=== PATIENT | male | born 1980 | race Caucasian/White ===

== ENCOUNTER 2018-11-27 18:26 | Emergency (ER) | payer MEDICAID ==
[~2018-11-27] VITALS: Ht 175.3 cm; Wt 79.0 kg
[~2018-11-27 18:26] MED LIST: ONDA4TAB6 PO
[2018-11-27 19:01] VITALS: BP 144/85
[2018-11-27] MEDS ORDERED: CEPH500C5 PO (19:15)
[2018-11-27] MEDS ORDERED: SULF1TAB49 PO (19:15)
== END 2018-11-27 19:45 | disposition home or self-care (01) ==
LOC: ER 18:27
DX: L02.415 Cutaneous abscess of right lower limb (principal); L02.414 Cutaneous abscess of left upper limb; L03.114 Cellulitis of left upper limb; L02.212 Cutaneous abscess of back [any part, except buttock and flank]; L98.499 Non-pressure chronic ulcer of skin of other sites with unspecified severity; J45.909 Unspecified asthma, uncomplicated; F41.9 Anxiety disorder, unspecified; F10.99 Alcohol use, unspecified with unspecified alcohol-induced disorder; Z79.899 Other long term (current) drug therapy; Y90.9 Presence of alcohol in blood, level not specified
CPT/HCPCS: 10060; 99283

== ENCOUNTER 2019-02-12 23:17 | Emergency (ER) | payer MEDICAID, OTHER ==
[~2019-02-12] VITALS: Ht 175.3 cm; Wt 72.7 kg
[2019-02-12 23:21] VITALS: BP 145/82
[2019-02-12] MEDS ORDERED: bacitracin 15gm ointment TP ONE (23:35)
[2019-02-12] MEDS ORDERED: HYDROcodone/acetaminophen 5mg/325mg tablet PO ONE (23:35)
[2019-02-12] MEDS ORDERED: LIDOcaine 1% w/EPI 1:200,000 injection 10mL vial IM ONE (23:35)
[2019-02-13] MEDS ORDERED: SULF1TAB49 PO (00:03)
[2019-02-13] MEDS ORDERED: HYDR-4383 PO (00:03)
== END 2019-02-13 00:19 | disposition home or self-care (01) ==
LOC: ER 23:18
DX: L02.512 Cutaneous abscess of left hand (principal); J45.909 Unspecified asthma, uncomplicated; F41.9 Anxiety disorder, unspecified; F10.99 Alcohol use, unspecified with unspecified alcohol-induced disorder; Z79.899 Other long term (current) drug therapy; Y90.9 Presence of alcohol in blood, level not specified
CPT/HCPCS: 10060; 99283

== ENCOUNTER 2019-06-09 02:16 | Emergency (ER) | payer OTHER ==
[~2019-06-09] VITALS: Ht 175.3 cm; Wt 72.0 kg
[~2019-06-09 02:16] MED LIST changes: +HYDR-4383 PO
[2019-06-09 02:24] VITALS: BP 149/104
[2019-06-09] MEDS ORDERED: MUPI22OI30 TOP (03:28)
== END 2019-06-09 03:35 | disposition home or self-care (01) ==
LOC: ER 02:17
DX: J34.0 Abscess, furuncle and carbuncle of nose (principal); J45.909 Unspecified asthma, uncomplicated; F41.9 Anxiety disorder, unspecified; F15.90 Other stimulant use, unspecified, uncomplicated; F17.200 Nicotine dependence, unspecified, uncomplicated; Z72.89 Other problems related to lifestyle; Z79.899 Other long term (current) drug therapy
CPT/HCPCS: 99283

== ENCOUNTER 2019-12-23 06:58 | Emergency (ER) | payer MEDICAID ==
[~2019-12-23] VITALS: Ht 175.3 cm; Wt 67.6 kg
[2019-12-23 07:01] VITALS: BP 137/96
--- NOTE | 2019-12-23 07:14 | NUR ---
PATIENT IS HERE FOR STAPLE REMOVAL. PATIENT HAS HEALING LAC ON TOP OF HEAD WITH 6 SHANEL NOTED. NO REDNESS, SWELLING OR DRAINAGE NOTED. STAPLE REMOVAL SET UP AT THE BEDSIDE.
== END 2019-12-23 08:16 | disposition home or self-care (01) ==
LOC: ER 06:58
DX: S01.01XD Laceration without foreign body of scalp, subsequent encounter (principal); J45.909 Unspecified asthma, uncomplicated; F41.9 Anxiety disorder, unspecified; F15.90 Other stimulant use, unspecified, uncomplicated; Z72.89 Other problems related to lifestyle; Z79.899 Other long term (current) drug therapy; W22.8XXD Striking against or struck by other objects, subsequent encounter
CPT/HCPCS: 99281

== ENCOUNTER 2020-01-29 15:51 | Emergency (ER) | payer MEDICAID ==
[~2020-01-29] VITALS: Ht 175.3 cm; Wt 72.7 kg
[2020-01-29 16:19] VITALS: BP 132/87
[2020-01-29] MEDS ORDERED: PRED20TA PO (16:58)
[2020-01-29] MEDS ORDERED: ALBU8HFA PO (16:58)
== END 2020-01-29 17:28 | disposition home or self-care (01) ==
LOC: ER 15:52
DX: J45.901 Unspecified asthma with (acute) exacerbation (principal); Z76.0 Encounter for issue of repeat prescription; F41.9 Anxiety disorder, unspecified; F17.210 Nicotine dependence, cigarettes, uncomplicated; F15.90 Other stimulant use, unspecified, uncomplicated; Z72.89 Other problems related to lifestyle; Z79.899 Other long term (current) drug therapy
CPT/HCPCS: 99281

== ENCOUNTER 2021-03-20 15:22 | Emergency (ER) | payer MEDICAID ==
[~2021-03-20] VITALS: Ht 175.3 cm; Wt 77.0 kg
[2021-03-20 15:41] VITALS: BP 126/77
[2021-03-20] MEDS ORDERED: CefTRIAXone 1000mg IM Kit (w/lidocaine diluent) IM STA (17:21)
[2021-03-20] MEDS ORDERED: DOXYCYCLINE 100MG CAPSULE PO ONE (17:25)
[2021-03-20] MEDS ORDERED: DOXY100C76 PO (18:01)
== END 2021-03-20 18:05 | disposition home or self-care (01) ==
LOC: ER 15:23
DX: N45.2 Orchitis (principal); J45.909 Unspecified asthma, uncomplicated; F41.9 Anxiety disorder, unspecified; F15.10 Other stimulant abuse, uncomplicated; Z79.899 Other long term (current) drug therapy
CPT/HCPCS: 36415; 76870; 87491; 87591; 93976; 96372; 99284; J0696

== ENCOUNTER 2021-05-18 15:16 | Emergency (ER) | payer MEDICAID ==
[~2021-05-18] VITALS: Ht 175.3 cm; Wt 77.3 kg
[2021-05-18] MEDS ORDERED: AMOX-422 PO (16:38)
[2021-05-18] MEDS ORDERED: amox tr/potassium clavulanate 875/125mg TAB PO ONE (16:40)
== END 2021-05-18 16:50 | disposition home or self-care (01) ==
LOC: ER 15:17
DX: K05.20 Aggressive periodontitis, unspecified (principal); K08.89 Other specified disorders of teeth and supporting structures; F41.9 Anxiety disorder, unspecified; J45.909 Unspecified asthma, uncomplicated; F15.90 Other stimulant use, unspecified, uncomplicated; Z72.89 Other problems related to lifestyle; Z79.2 Long term (current) use of antibiotics; Z79.899 Other long term (current) drug therapy
CPT/HCPCS: 99283

== ENCOUNTER 2022-08-17 12:59 | Outpatient (CLI) | payer MEDICAID | END 2022-08-17 23:59 | disposition home or self-care (01) | LOC: RAD 12:59 | PROVIDERS: ATTEND General Practice | DX: F11.20 Opioid dependence, uncomplicated (principal) | CPT/HCPCS: 93005 ==

== ENCOUNTER 2022-10-08 20:25 | Emergency (ER) | payer MEDICAID ==
[~2022-10-08] VITALS: Ht 175.3 cm; Wt 176.0 kg
[2022-10-08 20:37] VITALS: BP 145/103
[2022-10-08] MEDS ORDERED: AMOX-580 PO (21:20)
[2022-10-08] MEDS ORDERED: amox tr/potassium clavulanate 875/125mg TAB PO ONE (21:20)
[2022-10-08] MEDS ORDERED: HYDROcodone/acetaminophen 5mg/325mg tablet PO ONE (21:20)
== END 2022-10-08 21:22 | disposition home or self-care (01) ==
LOC: ER 20:26
DX: K08.89 Other specified disorders of teeth and supporting structures (principal); J45.909 Unspecified asthma, uncomplicated; F15.90 Other stimulant use, unspecified, uncomplicated; Z72.89 Other problems related to lifestyle; Z79.899 Other long term (current) drug therapy; Z79.2 Long term (current) use of antibiotics
CPT/HCPCS: 99283

== ENCOUNTER 2022-10-16 16:55 | Emergency (ER) | payer MEDICAID ==
[~2022-10-16] VITALS: Ht 175.3 cm; Wt 79.4 kg
[~2022-10-16 16:55] MED LIST changes: +AMOX-580 PO
[2022-10-16 17:27] VITALS: BP 119/81
== END 2022-10-16 21:54 | disposition left against medical advice (07) ==
LOC: ER 16:56
DX: K08.89 Other specified disorders of teeth and supporting structures (principal); Z53.21 Procedure and treatment not carried out due to patient leaving prior to being seen by health care provider
CPT/HCPCS: 99281

== ENCOUNTER 2022-10-21 20:22 | Emergency (ER) | payer MEDICAID ==
[~2022-10-21] VITALS: Ht 175.3 cm; Wt 79.5 kg
[~2022-10-21 20:22] MED LIST changes: -AMOX-580 PO
[2022-10-21 20:43] VITALS: BP 146/92
[2022-10-21] MEDS ORDERED: CLIN300C54 PO (22:53)
[2022-10-21] MEDS ORDERED: IBUP-1986 PO (22:53)
[2022-10-21] MEDS ORDERED: ketorolac trometh inj. 60 MG/2 ML VIAL IM ONE (22:55)
== END 2022-10-21 23:26 | disposition home or self-care (01) ==
LOC: ER 20:23
DX: K08.89 Other specified disorders of teeth and supporting structures (principal); K04.7 Periapical abscess without sinus; J45.909 Unspecified asthma, uncomplicated; F41.9 Anxiety disorder, unspecified; F17.200 Nicotine dependence, unspecified, uncomplicated; F15.90 Other stimulant use, unspecified, uncomplicated; Z79.899 Other long term (current) drug therapy
CPT/HCPCS: 96372; 99283; J1885

== ENCOUNTER 2022-12-11 08:25 | Emergency (ER) | payer MEDICAID ==
[~2022-12-11] VITALS: Ht 175.3 cm; Wt 77.4 kg
[~2022-12-11 08:25] MED LIST changes: +IBUP-1986 PO
[2022-12-11 08:34] VITALS: TEMP 97.7
[2022-12-11] MEDS ORDERED: HYDR-3973 PO (09:21)
[2022-12-11] MEDS ORDERED: ketorolac trometh. 30mg/ml inj. IM ONE (09:25)
[2022-12-11 10:27] VITALS: BP 138/93; PULSE 61; RESP 19; O2SAT 95
== END 2022-12-11 10:33 | disposition home or self-care (01) ==
LOC: ER 08:25
DX: S20.211A Contusion of right front wall of thorax, initial encounter (principal); J45.909 Unspecified asthma, uncomplicated; F15.90 Other stimulant use, unspecified, uncomplicated; F17.210 Nicotine dependence, cigarettes, uncomplicated; Z72.89 Other problems related to lifestyle; Z79.899 Other long term (current) drug therapy; W19.XXXA Unspecified fall, initial encounter; Y93.89 Activity, other specified; Y92.89 Other specified places as the place of occurrence of the external cause; Y99.8 Other external cause status
CPT/HCPCS: 71100; 96372; 99283; J1885

== ENCOUNTER 2023-12-17 20:27 | Emergency (ER) | payer SELFPAY ==
[~2023-12-17] VITALS: Ht 175.3 cm; Wt 89.8 kg
[2023-12-17 20:33] VITALS: TEMP 98.2
[2023-12-17] MEDS ORDERED: SULF1TAB48 PO (21:07)
[2023-12-17] MEDS: sulfamethoxazole/trimethoprim DS (800/160mg) tablet PO ONE (21:22)
[2023-12-17] MEDS: CefTRIAXone 1000mg IM Kit (w/lidocaine diluent) IM ONE (21:23)
[2023-12-17 21:26] VITALS: BP 127/92; PULSE 93; RESP 18; O2SAT 96
== END 2023-12-17 21:28 | disposition home or self-care (01) ==
LOC: ER 20:28
DX: L03.113 Cellulitis of right upper limb (principal); J45.909 Unspecified asthma, uncomplicated; F41.9 Anxiety disorder, unspecified; F15.90 Other stimulant use, unspecified, uncomplicated; Z79.899 Other long term (current) drug therapy; Z79.1 Long term (current) use of non-steroidal anti-inflammatories (NSAID)
CPT/HCPCS: 96372; 99283; J0696